=== PATIENT | male | born 1955 | race Caucasian/White ===

== ENCOUNTER 2018-03-21 10:46 | Inpatient (IN) ==
[2018-03-21] MEDS ORDERED: SALINE FLUSH 10ml SYRINGE IVF PRN (11:13)
[2018-03-21] MEDS ORDERED: NS 1,000 ML IV ONE (11:13)
--- OUTSIDE RECORDS SUMMARY | 2018-03-21 11:16 | External Medical Summary ---
:1955 Author Organization e[employer] Care Team Providers Name Role Phone Gloria Isidro Provider Role Unavailable Allergies No Known Allergies Problems No Known Problems Medications No Known Medications Results No Known Results Summary Purpose [employer] Submission
[2018-03-21] MEDS ORDERED: ONDANSETRON 4 MG/2 ML INJECTION IVP ONE (11:30)
[2018-03-21] MEDS ORDERED: CEFAZOLIN 1 G INJECTION IVP ONE ×2 (11:30→14:00)
[2018-03-21] MEDS ORDERED: MORPHINE SULFATE 4mg INJECTION IVP ONE ×2 (11:30→13:42)
--- NOTE | 2018-03-21 12:02 | Emergency Department Report ---
Head Injury HPI - General Chief complaint: Trauma Stated complaint: arm laceration, fall, head laceration Time Seen by Provider: 03/21/18 11:10 - History of Present Illness HPI Narrative: 62-year-old male presents with laceration to left wrist and forehead. He was notified as stated his having to go to [facility] for [facility], he became frustrated and slashed at the back of his hand with a knife blade. He cut through deeply enough that he has been unable to flex his fingers since that time. He states he only had one drink of vodka when that happened. He "lost a lot of blood" - Related Data Home Medications Medication Instructions Recorded Confirmed Multivit-Min/FA/Lycopen/Lutein 1 tab PO DAILY #0 09/01/15 03/21/18 [Centrum Silver Tablet] Allopurinol [Zyloprim] 300 mg PO DAILY 12/11/17 03/21/18 Lisinopril [Prinivil] 40 mg PO DAILY 12/11/17 03/21/18 Oxycodone *IR* [Roxicodone *Ir*] 5 mg PO QID PRN 01/21/18 03/21/18 Aspirin [Aspirin EC] 81 mg PO DAILY 03/21/18 03/21/18 Escitalopram [Lexapro] 10 mg PO DAILY 03/21/18 03/21/18 Ibuprofen 600 mg PO Q6H PRN 03/21/18 03/21/18 LORazepam [Ativan] 0.5 mg PO TID PRN 03/21/18 03/21/18 Allergies/Adverse reactions: Allergies Allergy/AdvReac Type Severity Reaction Status Date / Time No Known Drug Allergies Allergy Unknown Verified 03/21/18 11:02 [facility] Patient Stated Medical History Hypertension Yes Sleep Apnea No Gastroesophageal Reflux Yes: well controlled Disease Other GI Yes: GOUT, DIVERTICULITIS Anesthesia Reactions No Surgical History: colon resection - Social History Smoking status: Never smoker Substance use type: does not use Alcohol intake frequency: former alcohol drinker Course Vital Signs Temperature 98.9 F 03/21/18 10:48 Pulse Rate 97 03/21/18 10:48 Respiratory Rate 16 03/21/18 10:48 Blood Pressure 115/70 03/21/18 10:48 Pulse Oximetry 98 03/21/18 10:48 Temperature 98.9 F 03/21/18 10:48 Pulse Rate 97 03/21/18 10:48 Respiratory Rate 16 03/21/18 10:48 Blood Pressure 115/70 03/21/18 10:48 Pulse Oximetry 98 03/21/18 10:48 Head Injury - Lab Data Result diagrams: 03/21/18 11:15 03/21/18 11:15 Lab Results 03/21/18 03/21/18 Range/Units 11:15 11:15 WBC 22.6 H (4.5-11.0) T/MM3 RBC 3.87 L (4.50-5.90) M/MM3 Hgb 11.1 L (13.5-17.5) GM/DL Hct 33.6 L (41-53) % MCV 86.8 (80-100) UM3 MCH 28.7 (26-34) UUG MCHC 33.0 (31-37) GM/DL RDW Std Deviation 42.7 (36.9-50.2) FL Plt Count 329 (130-400) T/MM3 MPV 9.4 (9.4-12.4) UM3 Immature Gran % (Auto) Not performed Neut % (Auto) Not performed Lymph % (Auto) Not performed [place] % (Auto) Not performed Eos % (Auto) Not performed Baso % (Auto) Not performed Neut # (Auto) Not performed Lymph # (Auto) Not performed [place] # (Auto) Not performed Eos # (Auto) Not performed Baso # (Auto) Not performed Abs Immat Gran (auto) Not performed Neutrophils % (Manual) 88.0 H (33-66) % Lymphocytes % (Manual) 6.0 L (23-45) % Monocytes % (Manual) 6.0 (0-9.0) % Neutrophils # (Manual) 19.9 H (1.8-7.7) T/MM3 Lymphocytes # (Manual) 1.4 (1-4.8) T/MM3 Monocytes # (Manual) 1.4 H (0-0.8) T/MM3 RBC Morph Comment Normal Turbidity < 20 (0-20) Sodium 138 (134-144) MEQ/L Potassium 5.5 H (3.6-5) MEQ/L Chloride 101 (98-107) MEQ/L Carbon Dioxide 17 L (22-30) MEQ/L Anion Gap 20 H (5-15) meq/L BUN 26.0 H (9-20) MG/DL Creatinine 2.1 H (0.8-1.5) mg/dL GFR Calculation 32 BUN/Creatinine Ratio 12 (6-26) RATIO Glucose 144 H (75-110) MG/DL Calculated Osmolality 274 (261-280) MOSM/KG Calcium 8.5 (8.4-10.2) MG/DL Total Bilirubin 0.90 (0.20-1.30) MG/DL Conjugated Bilirubin 0.00 (0.00-0.30) mg/dL Unconjugated Bilirubin 0.50 (0.00-1.1) mg/dL Icterus Index < 2 (0-7) AST 81 H (17-59) U/L ALT 36 (1-50) U/L Alkaline Phosphatase 48 (38-126) U/L Total Protein 7.2 (6.3-8.2) g/dL Albumin 4.3 (3.5-5.0) g/dL Globulin 2.9 (2.4-3.6) G/DL Albumin/Globulin Ratio 1.5 (1.1-2.2) RATIO Specimen Hemolysis 92 H (0-25) Disposition Prescriptions: No Action Multivit-Min/FA/Lycopen/Lutein [Centrum Silver Tablet] 1 tab PO DAILY #0 Lisinopril [Prinivil] 40 mg PO DAILY Allopurinol [Zyloprim] 300 mg PO DAILY Escitalopram [Lexapro] 10 mg PO DAILY Aspirin [Aspirin EC] 81 mg PO DAILY Ibuprofen 600 mg PO Q6H PRN PRN Reason: Pain Oxycodone *IR* [Roxicodone *Ir*] 5 mg PO QID PRN PRN Reason: Pain LORazepam [Ativan] 0.5 mg PO TID PRN PRN Reason: Anxiety Referrals: Jacobo Luna II, MD [Primary Care Provider] -
--- OUTSIDE RECORDS SUMMARY | 2018-03-21 13:46 | External Medical Summary ---
:1955 Author Organization eClinicalWorks Care Team Providers Name Role Phone Gloria Isidro Provider Role Unavailable Allergies, Adverse Reactions, Alerts Substance Reaction Event Type N.K.D.A. Info Not Available Non Drug Allergy Problems Problem Type Condition Code Onset Dates Condition Status Assessment Encounter for follow-up examination Z09 Active after completed treatment for conditions other than malignant neoplasm Assessment Essential (primary) hypertension I10 Active Assessment Generalized abdominal pain R10.84 Active Medications Medication Code System Code Instructions Start End Date Status Dosage Date Lisinopril [facility] 07876-42 40 MG Orally 1 tablet 70-01 Once a day Stool Softener NDC 94451-32 100 MG Orally 1 capsule 86-72 Once a day as needed [place] [facility] 42443-11 5-325 MG Orally Sep 19Sep 24, 1 tablet as 13-01 every 6 hrs 2014 2014 needed Procedures Procedure Coding System Code Date OFFICE VISIT, EST-MOD. COMPLEXITY (25 MIN) CPT-4 73790 Sep 19, 2015 Vital Signs Date/Time: Sep 19, 2015 Height 68 in Weight 180.4 lbs Temperature 98.0 F Blood Pressure Diastolic 78 mm Hg Blood Pressure Systolic 130 mm Hg Cardiac Monitoring Heart Rate 84 /min BMI 27.43 Index Respiratory Rate 16 /min Results No Known Results Summary Purpose [employer] Submission
[2018-03-21] MEDS: NS 1,000 ML IV SCH ×5 (13:53→18:44)
[2018-03-21] MEDS ORDERED: LIDOCAINE 1% (10mg/ml) 30ml SDV INJ ONE (13:54)
[2018-03-21] MEDS ORDERED: BUPIVACAINE 0.25% (2.5mg/ml) PF 30ml INJECTION ONE (13:54)
--- NOTE | 2018-03-21 13:56 | Orthopedic History & Physical ---
Orthopedic HPI - HPI Comments Mr. Duncan is a 62-year-old gentleman who accidentally cut the dorsum of his left wrist with a fish fillet knife today. He said he was losing a lot of blood and passed out and hit his head. He packed the left wrist wound with flower. He then presented to emergency room. He is unable to extend his index middle and ring finger and he has numbness to the dorsum of his hand. [facility] Patient Stated Medical History Hypertension Yes Sleep Apnea No Gastroesophageal Reflux Yes: well controlled Disease Other GI Yes: GOUT, DIVERTICULITIS Anesthesia Reactions No Surgical History: colon resection - Social History Smoking status: Never smoker Substance use type: does not use Alcohol intake frequency: former alcohol drinker Review of Systems - Constitutional Constitutional: Absent: chills, fever(s), night sweats - Cardiovascular Cardiovascular: Absent: chest pain, palpitations - Respiratory Respiratory: Absent: cough, dyspnea - Gastrointestinal Gastrointestinal: Absent: abdominal pain, nausea, vomiting - Musculoskeletal Musculoskeletal: Present: as per HPI - Integumentary/Breasts Integumentary: Absent: lesions, rash - Neurological Neurological: Present: numbness, tingling Medications Home Medications Medication Instructions Recorded Confirmed Type Multivit-Min/FA/Lycopen/Lutein 1 tab PO DAILY #0 09/01/15 03/21/18 History [Centrum Silver Tablet] Allopurinol [Zyloprim] 300 mg PO DAILY 12/11/17 03/21/18 History Lisinopril [Prinivil] 40 mg PO DAILY 12/11/17 03/21/18 History Oxycodone *IR* [Roxicodone *Ir*] 5 mg PO QID PRN 01/21/18 03/21/18 History Aspirin [Aspirin EC] 81 mg PO DAILY 03/21/18 03/21/18 History Escitalopram [Lexapro] 10 mg PO DAILY 03/21/18 03/21/18 History Ibuprofen 600 mg PO Q6H PRN 03/21/18 03/21/18 History LORazepam [Ativan] 0.5 mg PO TID PRN 03/21/18 03/21/18 History Allergies Allergy/AdvReac Type Severity Reaction Status Date / Time No Known Drug Allergies Allergy Unknown Verified 03/21/18 11:02 Exam - Constitutional Vital Signs: Temperature 98.9 F 03/21/18 10:48 Pulse Rate 94 03/21/18 13:40 Respiratory Rate 18 03/21/18 13:40 Blood Pressure 104/50 03/21/18 13:40 Pulse Oximetry 99 03/21/18 13:40 General: cooperative, well developed, disheveled Nutritional Appearance: well nourished Orientation: alert - Gait Assistive Device: none - Psych Mood: normal Affect: normal Attitude: cooperative - RUE General: normal to inspection, no obvious deformity, other (partial amputation to the index finger) Skin: no rashes or lesions noted Shoulder Range of Motion: within normal limits Elbow Range of Motion: within normal limits Wrist Range of Motion: within normal limits Neurological: normal to light touch, strength 5/5 throughout - LUE Shoulder Range of Motion: within normal limits Elbow Range of Motion: within normal limits Left Upper Extremity Comments: He is unable to actively extend the index middle and ring finger. He was decreased sensation to the dorsum of his hand. The wrist itself is wrapped with 4 x 4's and Coban. He can make a fist. - RLE Hip: negative straight leg raise - Wound Right Frontal Type of Wound/Ulcer: Other (traumatic laceration to bone) Wound Drainage Description: Sanguineous Wound Drainage Odor: No Odor Wound Size: > than 1 squre cm - Labs Result Diagrams: 03/21/18 11:15 03/21/18 11:15 Abnormal lab results 03/21/18 03/21/18 Range/Units 11:15 11:15 WBC 22.6 H (4.5-11.0) T/MM3 RBC 3.87 L (4.50-5.90) M/MM3 Hgb 11.1 L (13.5-17.5) GM/DL Hct 33.6 L (41-53) % Neutrophils % (Manual) 88.0 H (33-66) % Lymphocytes % (Manual) 6.0 L (23-45) % Neutrophils # (Manual) 19.9 H (1.8-7.7) T/MM3 Monocytes # (Manual) 1.4 H (0-0.8) T/MM3 Potassium 5.5 H (3.6-5) MEQ/L Carbon Dioxide 17 L (22-30) MEQ/L Anion Gap 20 H (5-15) meq/L BUN 26.0 H (9-20) MG/DL Creatinine 2.1 H (0.8-1.5) mg/dL Glucose 144 H (75-110) MG/DL AST 81 H (17-59) U/L Specimen Hemolysis 92 H (0-25) H & H 03/21/18 Range/Units 11:15 Hgb 11.1 L (13.5-17.5) GM/DL Hct 33.6 L (41-53) % Orthopedic Assessment and Plan (1) Extensor tendon laceration of left wrist with open wound Status: Acute Qualifiers: Encounter type: initial encounter Qualified Code(s): S66.922A - Laceration of unspecified muscle, fascia and tendon at wrist and hand level, left hand, initial encounter; S61.502A - Unspecified open wound of left wrist, initial encounter Assessment and Plan: Given the fact that he placed a [place] into the wound and he cannot extend his fingers I recommended a surgical exploration with irrigation and debridement and repair of tendon lacerations as needed. I would like to keep him overnight on IV antibiotics to watch the wound post operatively. We'll also repair his laceration while he is in the operating room. (2) Laceration of head Status: Acute Hospital Course Summary Disclaimer: The visit summary below is not to be considered part of the above Progress Note.
[2018-03-21] MEDS ORDERED: PROPOFOL 20 ML ONE (14:07)
[2018-03-21] MEDS ORDERED: SEVOFLURANE 250ml LIQUID IH ONE (14:07)
[2018-03-21] MEDS ORDERED: ROCURONIUM 50 MG/5 ML INJECTION IVP ONE ×2 (14:07→15:24)
--- NOTE | 2018-03-21 14:11 | Anesthesia Preoperative Report ---
Anesthesia Preoperative Record - Date and Time Date: 03/21/18 Preoperative Diagnosis: arm laceration, fall, head laceration Proposed Procedure: repair face and arm laceration NPO Since Date: 03/21/18 NPO Since Time: 10:00 Allergies/Adverse Reactions: Allergies Allergy/AdvReac Type Severity Reaction Status Date / Time No Known Drug Allergies Allergy Unknown Verified 03/21/18 11:02 - Vital Signs Vital Signs: Temperature 98.9 F 03/21/18 10:48 Pulse Rate 93 03/21/18 14:08 Respiratory Rate 19 03/21/18 14:08 Blood Pressure 88/50 03/21/18 14:08 Pulse Oximetry 99 03/21/18 14:08 Height and Weight: Height 1.73 m Weight 91 kg - Medications Inpatient Medications: Current Medications Sodium Chloride (Normal Saline) 1,000 mls @ 500 mls/hr IV .Q2H VIKI Last Admin: 03/21/18 13:53 Dose: 500 mls/hr Cefazolin Sodium 2 g/ Sodium (Chloride) 100 mls @ 200 mls/hr IV O ONE Stop: 03/21/18 14:44 Lorazepam (Ativan Inj) 0.5 mg IVP O PRN Sodium Chloride (Iv Flush) 10 - 80 ml IVF PRN PRN PRN Reason: Flushing Last Admin: 03/21/18 11:34 Dose: 10 ml Home Medications: Home Medications Medication Instructions Recorded Confirmed Type Multivit-Min/FA/Lycopen/Lutein 1 tab PO DAILY #0 09/01/15 03/21/18 History [Centrum Silver Tablet] Allopurinol [Zyloprim] 300 mg PO DAILY 12/11/17 03/21/18 History Lisinopril [Prinivil] 40 mg PO DAILY 12/11/17 03/21/18 History Oxycodone *IR* [Roxicodone *Ir*] 5 mg PO QID PRN 01/21/18 03/21/18 History Aspirin [Aspirin EC] 81 mg PO DAILY 03/21/18 03/21/18 History Escitalopram [Lexapro] 10 mg PO DAILY 03/21/18 03/21/18 History Ibuprofen 600 mg PO Q6H PRN 03/21/18 03/21/18 History LORazepam [Ativan] 0.5 mg PO TID PRN 03/21/18 03/21/18 History Is Patient on Beta Landon?: No - Medical History Respiratory: DENIES: Sleep Apnea Cardiovascular: Reports: Hypertension Gastrointestional: Reports: Gastroesophageal Reflux Disease (well controlled), Other (GOUT, DIVERTICULITIS) Neuro/Musculoskeletal: Reports: Depression Renal/Endocrine: Reports: Other (Hepatitis C) Other History: DENIES: Anesthesia Reactions - Surgical History GI Surgery/Treatments: Reports: Colon Resection (2016) Musculoskeletal Surgery/Tx: Comment Only: Other (R INDEX FINGER AMPUTATION) Hx Family Anesthesia Reaction: No - Social History Smoking Status: Never smoker Hx Chewing Tobacco Use: No Second Hand Exposure: No Substance Use Type: does not use Alcohol Intake: current Alcohol Intake Frequency: 0-2 drinks per day - Pertinent Findings Laboratory: CBC and BMP 03/21/18 11:15 03/21/18 11:15 BMP 03/21/18 11:15 Sodium 138 Potassium 5.5 H Chloride 101 Carbon Dioxide 17 L BUN 26.0 H Creatinine 2.1 H Glucose 144 H Calcium 8.5 Liver Function 03/21/18 Range/Units 11:15 Total Bilirubin 0.90 (0.20-1.30) MG/DL AST 81 H (17-59) U/L ALT 36 (1-50) U/L Alkaline Phosphatase 48 (38-126) U/L Albumin 4.3 (3.5-5.0) g/dL EKG: Sinus Rhythm - Physical Exam Respiratory Exam: Present: lungs clear Cardiovascular Exam: Present: regular rate and rhythm, no murmur - Airway Assessment Mallampati Score: I TMD: 3 Fingerbreadths Neck Extension: good Teeth: chipped teeth/crowns Overall Assessment: no airway concerns - ASA ASA Score: 2, E - Plan Anesthesia: General Inhalation Gases - Discussion Discussion: Discussed risks/options/alternatives of anesthesia and questions answered. Patient consents. Nursing pain assessment noted. Attestation Statement: Prior to the delivery of any anesthetic medication, I examined the patient, developed the plan, obtained the patient's consent and discussed the risk and benefits of the procedure with the patient/guardian. - Additional Information Seen by Anesthesia: Yes
--- NOTE | 2018-03-21 14:12 | History & Physical Report ---
History of Present Illness Date: 03/21/18 Chief complaint: left wrist injury HPI: Mr. Harmon is a 62 y/o male who was sharpening a fish filet knife at 0200 on (he states that he often stays up late doing house projects). After he sharpened it, it accidentally slipped out of his hand causing a deep cut on left wrist. He reports it bled profusely, and he actually passed out from the blood loss. He fell forward, causing a right forehead laceration. He now has a headache. He thinks his nose might be broken too. At some point, he stuffed the wound with flour. He tried to make it up the steps, but ended up falling again, this time injuring his right lower ribs. It's painful to breathe but he denies abdominal pain. He still feels weak, dizzy, and lightheaded. He admits to drinking a bloody frandy at 1999 on 03/20/18 but denies further alcohol intake. His wanted to call 911 but he refused. He did present to [facility], however, and he was found to be anemic with a hgb of 11.1 (in December it was 15-16). WBC was 22.6. He also was hyperkalemic (5.5) and had an HEATHER with creatinine of 2.6. He was given a total of 1.5L of NS for hypotension and renal support. He was given Ancef; tetanus was updated in November. CT scans of his head, cervical spine, and maxillofacial were read as negative. Wrist x-ray did not show fracture but demonstrated foreign material anterior to the carpal bones. Both Dr. Curtis and Dr. Jang were contacted, and given his HEATHER, hemodynamic instability, combined with ABLA contributing to syncope, and contaminated wound with likely tendon involvement requiring immediate surgery, he was admitted to inpatient status. Review of Systems All systems PM: 10-point ROS was reviewed, no additional remarkable complaints except - Constitutional Constitutional: Present: headache(s), weakness - EENMT Eyes: Present: blurry vision Nose: Present: allergies Mouth/Throat: Absent: sore throat, changes in swallowing - Cardiovascular Cardiovascular: Present: chest pain, syncope Vascular: Absent: pedal edema - Respiratory Respiratory: Present: cough (mild). Absent: dyspnea - Gastrointestinal Gastrointestinal: Absent: abdominal pain, constipation, diarrhea, nausea, vomiting - Genitourinary Genitourinary: Absent: dysuria, hematuria - Musculoskeletal Musculoskeletal: Present: back pain, neck pain, other (left wrist pain) - Integumentary/Breasts Integumentary: Present: as per HPI, wounds - Neurological Neurological: Present: as per HPI, dizziness, headache(s), weakness. Absent: abnormal speech, confusion, focal weakness, numbness, paresthesias - Psychiatric Psychiatric: Present: anxiety, depression - Endocrine Endocrine: Present: palpitations (occasionally) - Hematologic/Lymphatic Hematologic/Lymphatic: Absent: easy bleeding - Allergic/Immunologic Allergic/Immunologic: Present: seasonal rhinorrhea Past Medical History Medical History Updates: HTN. Gout. Chronic neck and back pain. GERD. BPH. history of pericarditis. arthritis. anxiety. Hepatitis C. B/L carpal tunnel syndrome. allergic rhinitis Surgical History: exploratory laparotomy with excision of mass contiguous with bladder, sigmoid resection with primary anastomosis (2014) Dr. Sher. Right index finger distal amputation Dr. Curtis Family History Updates: Mother - HTN and DM. Both mother and father had heart disease. Family History: As Above - Social History Smoking status: Never smoker Substance use type: does not use Alcohol intake frequency: other (moderate intake) Last drink: hours (ago) (1999 on 03/20/18) Housing: house Household members: spouse Current occupational status: employed Current occupation: [employer] Does patient use chewing tobacco?: No Social history: PCP: Dr. Luna Medications Home Medications Medication Instructions Recorded Confirmed Type Multivit-Min/FA/Lycopen/Lutein 1 tab PO DAILY #0 09/01/15 03/21/18 History [Centrum Silver Tablet] Allopurinol [Zyloprim] 300 mg PO DAILY 12/11/17 03/21/18 History Lisinopril [Prinivil] 40 mg PO DAILY 12/11/17 03/21/18 History Oxycodone *IR* [Roxicodone *Ir*] 5 mg PO QID PRN 01/21/18 03/21/18 History Aspirin [Aspirin EC] 81 mg PO DAILY 03/21/18 03/21/18 History Escitalopram [Lexapro] 10 mg PO DAILY 03/21/18 03/21/18 History Ibuprofen 600 mg PO Q6H PRN 03/21/18 03/21/18 History LORazepam [Ativan] 0.5 mg PO TID PRN 03/21/18 03/21/18 History Allergies Allergy/AdvReac Type Severity Reaction Status Date / Time No Known Drug Allergies Allergy Unknown Verified 03/21/18 11:02 Exam Vital Signs: Temperature 98.9 F 03/21/18 10:48 Pulse Rate 93 03/21/18 14:08 Respiratory Rate 19 03/21/18 14:08 Blood Pressure 88/50 03/21/18 14:08 Pulse Oximetry 99 03/21/18 14:08 Telemetry Rhythm: Sinus Rhythm Height/Weight/BMI: Height 1.73 m Weight 91 kg - Constitutional Present: no acute distress, well nourished, well developed, obese - Routine HEENT Exam Head: Present: normocephalic Eye: Present: PERRL. Absent: conjunctival icterus, scleral injection ENT: Present: mucous membranes moist, oropharynx clear. Absent: dentition normal (missing teeth) - Detailed Head Exam Head image: 1 - Gaping laceration 2 - contusion 3 - abrasions 4 - head feels numb - Routine Neck Exam Present: supple - Routine Chest/Breast/Axilla Exam Chest wall: Present: tenderness (right lower ribs) - Routine Respiratory Exam Present: CTA bilaterally - Routine Cardiovascular Exam Present: RRR, S1, S2 - Routine Abdominal Exam Present: soft, normoactive bowel sounds, non distended, non tender. Absent: rebound, guarding, organomegaly - Routine Extremities Exam Present: no edema (BLE) Comments: left wrist is wrapped tightly causing swelling of left hand. He is only able to extend his 5th finger and is also able to move his thumb. He cannot extend his 2nd, 3rd, and 4th fingers. He has loss of sensation to these fingertips as well. He has a distal amputation of his right index finger large contusion to left forearm - Routine Skin Exam Present: dry, warm, wounds - Routine Neurological Exam Present: alert, oriented X3, CN II-XII intact, moving all extremities, vision grossly intact, hearing grossly intact, normal speech - Routine Psychiatric Exam Present: normal affect, normal thought process, cooperative Results - Labs CBC & Chem 7: 03/21/18 11:15 03/21/18 11:15 - Imaging and Cardiology CT scan - head Status: image reviewed by me Additional comments: CT scans of c-spine, head, and maxillofacial were negative for acute findings. Left wrist Status: image reviewed by me Additional comments: no fracture seen ; foreign material anterior to carpals Assessment and Plan (1) Acute renal failure Current visit: Yes Status: Acute (2) Hypotension arterial Current visit: Yes Status: Acute (3) Extensor tendon laceration of left wrist with open wound Current visit: Yes Status: Acute Assessment and Plan: Assessment ARF (Cr 2.1) - baseline 0.7 Hypotension (MAP 60) Syncope ABLA (11.1) Hyperkalemia (5.5) Left wrist laceration with extensor tendon injury Scalp laceration Leukocytosis (22.6) Probable concussion hx HTN Gout Chronic neck and back pain GERD BPH history of pericarditis arthritis anxiety Hepatitis C B/L carpal tunnel syndrome allergic rhinitis Plan Admit, inpatient status under the hospitalist service. PCP: Dr. Luna. ABLA, hypotension, syncope -type and screen -IVF: NS at 150 mL/hr HEATHER, hypotension -IVF as above -check urine sodium and creatinine -hold lisinopril, ibuprofen wrist laceration -debridement/closure planned today per Dr. Curtis -Ancef -follow WBC - leukocytosis could be stress response -hold ASA for now acute on chronic pain -home oxycodone - may take 1-2 QID PRN -morphine PRN Orders discussed with Dr. Jang. DVT Prophylaxis: SCD's Resuscitation Status: Full Code - Physician Narrative Physician: Lola Jang MD Narrative: Date: 03/21/18 Time: 1709 I have independently evaluated and examined this patient. I reviewed the chart, the patient's history, and the PATIENT ACCOUNT SPECIALIST/PA's documented findings as above. We discussed and formulated the assessment and plan as above with additions as below: Mr. Harmon was seen in the emergency room prior to surgery. He sustained a accidental laceration to his left dorsal wrist at 2 AM followed by significant blood loss and syncope resulting in large head laceration and probable second episode of syncope and chest injury. Patient has persistent hypotension in the emergency room in conjunction with 4 to 5 point drop in hemoglobin from baseline in December and significant increase in creatinine from that time suggesting ATN. There is evidence of tendon laceration of the left second third and fourth extensor tendons as he is unable to extend any of those digits although he can weakly flex all digits of the left hand. He additionally has impaired sensation to light touch for those 3 fingers. The patient is cooperative in the emergency room but describes lightheadedness, rib pain, and headache. Patient moves all extremities grossly symmetrically, edema of the left hand is present but the patient is able to weakly flex all digits of the left hand, no extension of the second third and fourth digits left hand as noted above. Respirations nonlabored but diminished airflow anteriorly; regular cardiac rhythm. 5-6 cm irregular gaping laceration above/lateral to the right eyebrow. Maxillofacial/head CT/C-spine CT all reviewed by myself and negative for acute pathology other than facial laceration described above; incidentally old lacunar infarcts were identified in the basal ganglia bilaterally. Hypotension/hemodynamic instability-continue fluids Acute renal failure-probable ATN due to hypotension/acute blood loss Acute blood loss anemia, anticipate hemoglobin to drop further as equilibration occurs and with rehydration. Hemoglobin to be recheck postoperatively Wounds/tendon injuries (contaminated wound)-surgical repair per Dr. Curtis, discussed with him postoperatively. No gross contamination of the wound intraoperatively but delayed arrival and high risk wound with exposed tendons will require continued antibiotics. OT eval in time. Rib pain present on arrival-chest x-ray to be obtained to look for evidence of rib fracture. Initial glucose modestly elevated-likely stress reaction; AST also elevated with normal ALT-likely EtOH related/Hep C. Discussed with Dr. Arvizu prior to hospitalization. Hospital Course Summary Disclaimer: The visit summary below is not to be considered part of the above Progress Note. Hospital Course: 03/21/18 - Admit, inpatient status under the hospitalist service. PCP: Dr. Luna. ABLA, hypotension, syncope -type and screen -IVF: NS at 150 mL/hr HEATHER, hypotension -IVF as above -check urine sodium and creatinine -hold lisinopril, ibuprofen wrist laceration -debridement/closure planned today per Dr. Curtis -Ancef -follow WBC - leukocytosis could be stress response -hold ASA for now acute on chronic pain -home oxycodone - may take 1-2 QID PRN -morphine PRN
[2018-03-21] MEDS ORDERED: CEFAZOLIN 2 G in NS 100 ML IV ONE (14:15)
[2018-03-21] MEDS ORDERED: FentaNYL 250 MCG/5 ML INJECTION ONE (14:25)
[2018-03-21] MEDS ORDERED: CEFAZOLIN 1 G INJECTION ONE (14:43)
[2018-03-21] MEDS ORDERED: SALINE FLUSH 10ml SYRINGE ONE (14:51)
[2018-03-21] MEDS ORDERED: PHENYLEPHRINE INJ 10 MG/ML VIAL IV ONE (14:51)
[2018-03-21] MEDS ORDERED: BUPIV 0.25% 30ml/LIDO 1% 30ml MIXTURE ID ONE (15:12)
[2018-03-21] MEDS ORDERED: Oxycodone *IR* 5 MG TABLET PO PRN (15:24)
[2018-03-21] MEDS ORDERED: LORazepam 0.5 MG TABLET PO PRN (15:24)
[2018-03-21] MEDS ORDERED: SENNA + DOCUSATE TABLET PO PRN (15:26)
[2018-03-21] MEDS ORDERED: MORPHINE SULFATE 4mg INJECTION IVP PRN (15:26)
[2018-03-21] MEDS ORDERED: ACETAMINOPHEN 325 MG TABLET PO PRN (15:26)
[2018-03-21] MEDS ORDERED: ONDANSETRON 4 MG/2 ML INJECTION IVP PRN (15:26)
[2018-03-21] MEDS ORDERED: EPHEDRINE 50mg/ml INJECTION ONE (16:11)
[2018-03-21] MEDS ORDERED: SUGAMMADEX 200mg/2ml INJECTION IVP ONE (16:44)
[2018-03-21] MEDS ORDERED: NEOMYCIN/POLYMYXIN/BACITRACIN OINT PACKET TP ONE (16:51)
[2018-03-21] MEDS ORDERED: MORPHINE SULFATE 10 MG/ML VIAL IVP PRN (17:16)
--- NOTE | 2018-03-21 17:34 | Anesthesia Postoperative Note ---
- Date and Time Date: 03/21/18 Time: 17:34 - Status Patient Participated in Evaluation: Patient Participated in Person Vital Signs: Temperature 97.6 F 03/21/18 16:58 Pulse Rate 87 03/21/18 17:30 Respiratory Rate 12 03/21/18 17:30 Blood Pressure 92/55 03/21/18 17:30 Pulse Oximetry 100 03/21/18 17:30 Respiratory Function: Airway Patent Cardiovascular Function: Regular Pulse EKG: Sinus Rhythm Mental Status: Alert and Oriented Hydration: Taking PO Fluids Complications During Recover: None Apparent - Follow-Up Instructions Instructions: Per Surgeon
[2018-03-21] MEDS: ARTIFICIAL TEARS 15ml EACH EYE PRN (19:46)
[2018-03-21] MEDS: Oxycodone *IR* 5 MG TABLET PO PRN (22:41)
[2018-03-22] MEDS: NS 1,000 ML IV SCH ×7 (00:05→18:52)
[2018-03-22] MEDS: CEFAZOLIN 2 G in NS 100 ML IV SCH ×3 (01:27→16:47)
[2018-03-22] MEDS: Oxycodone *IR* 5 MG TABLET PO PRN ×5 (04:22→23:48)
--- NOTE | 2018-03-22 07:41 | Orthopedic Progress Note ---
Date: Date: 03/22/18 Time: 737 Subjective/Severity of Illness: Postop day 1 left wrist laceration expiration with repair of extensor tendons. Mr. Duncan is alert and oriented this morning he states that his pain is well- controlled oral pain medication. He has no specific questions or new concerns or complaints today. Exam - Constitutional Vital Signs: Temperature 97.8 F 03/22/18 04:00 Pulse Rate 81 03/22/18 04:00 Respiratory Rate 20 03/22/18 04:00 Blood Pressure 106/64 03/22/18 04:00 Pulse Oximetry 98 03/22/18 04:00 General: cooperative, well developed, disheveled Nutritional Appearance: well nourished Orientation: alert - Cast/Brace Cast/Brace Type: other (volar slab splints to left forearm and wrist) Condition: in good condition without signs of skin ulceration, shows normal signs of wear, exposed digits with good ROM and capillary refill - Wound Right Frontal Type of Wound/Ulcer: Other (traumatic laceration to bone) - Labs Result Diagrams: 03/22/18 04:19 03/22/18 04:19 Abnormal lab results 03/21/18 03/21/18 03/22/18 Range/Units 18:29 20:03 04:19 RBC 3.01 L (4.50-5.90) M/MM3 Hgb 9.8 L D 8.6 L D (13.5-17.5) GM/DL Hct 29.4 L D 26.7 L (41-53) % Neut % (Auto) 66.6 H (33-66) % Lymph % (Auto) 22.4 L (23-45) % [place] % (Auto) 9.9 H (0-9.0) % [place] # (Auto) 1.1 H (0-0.8) T/MM3 BUN (9-20) MG/DL Glucose (75-110) MG/DL Calcium (8.4-10.2) MG/DL Ur Specific [place] >=1.030 H (1.015-1.025) Urine Protein 2+ A (NEGATIVE) Urine RBC 3-5 H (0-3) /HPF Urine Bacteria 1+ H (NEGATIVE) 03/22/18 Range/Units 04:19 RBC (4.50-5.90) M/MM3 Hgb (13.5-17.5) GM/DL Hct (41-53) % Neut % (Auto) (33-66) % Lymph % (Auto) (23-45) % [place] % (Auto) (0-9.0) % [place] # (Auto) (0-0.8) T/MM3 BUN 27.0 H (9-20) MG/DL Glucose 123 H (75-110) MG/DL Calcium 7.9 L (8.4-10.2) MG/DL Ur Specific [place] (1.015-1.025) Urine Protein (NEGATIVE) Urine RBC (0-3) /HPF Urine Bacteria (NEGATIVE) H & H 03/21/18 03/22/18 Range/Units 18:29 04:19 Hgb 9.8 L D 8.6 L D (13.5-17.5) GM/DL Hct 29.4 L D 26.7 L (41-53) % Orthopedic Assessment and Plan (1) Extensor tendon laceration of left wrist with open wound Status: Acute Qualifiers: Encounter type: initial encounter Qualified Code(s): S66.922A - Laceration of unspecified muscle, fascia and tendon at wrist and hand level, left hand, initial encounter; S61.502A - Unspecified open wound of left wrist, initial encounter Assessment and Plan: Mr. Herrera is doing well this morning. I explained to him that occurred in surgery yesterday and how important it is for him to keep the splint on and his wrist against current position. I also encouraged him to elevate his wrist at all times. We'll plan on keeping his wrist in the same position for 4 weeks before starting range of motion. Upon discharge and follow-up in my office in 1 week. (2) Laceration of head Status: Acute Hospital Course Summary Disclaimer: The visit summary below is not to be considered part of the above Progress Note. Hospital Course: 03/21/18 - Admit, inpatient status under the hospitalist service. PCP: Dr. Luna. ABLA, hypotension, syncope -type and screen -IVF: NS at 150 mL/hr HEATHER, hypotension -IVF as above -check urine sodium and creatinine -hold lisinopril, ibuprofen wrist laceration -debridement/closure planned today per Dr. Curtis -Ancef -follow WBC - leukocytosis could be stress response -hold ASA for now acute on chronic pain -home oxycodone - may take 1-2 QID PRN -morphine PRN
--- NOTE | 2018-03-22 08:52 | XRay Report ---
Indication: laceration dorsal PROCEDURE: XR wrist LT 3-4 views: Encounter: Initial Comparison: None Findings: There is no acute fracture, dislocation or malalignment identified. Old healed second and third metacarpal fractures. Bandaging material causing artifact. Impression: No acute osseous abnormality. .
--- NOTE | 2018-03-22 08:53 | CT Scan Report ---
Indication: fall PROCEDURE: CT head/brain wo con: Encounter: Initial Comparison: June 23, 2016 Technique: Axial CT images through the head were performed without contrast. Iterative Reconstruction dose reducing technique was utilized. FINDINGS: Moderate atrophy. Old lacunar infarcts. Prominent retrocerebellar CSF space. The ventricles are of normal size, shape, and configuration for the patient's age. There is no evidence of acute intracranial hemorrhage, midline displacement, or mass effect. There are scattered areas of low attenuation in the white matter which most likely represent changes of chronic microvascular ischemia. The CT attenuation of the brain parenchyma is otherwise normal within the cerebellum, brain stem, and cerebral hemispheres. The tympanic cavities and mastoid air cells are free of appreciable disease. There are no definite fractures of the skull base, calvarium, or visualized portion of the midface. IMPRESSION: No CT evidence of acute traumatic intracranial injury. .
[2018-03-22] MEDS: POLYETHYL GLYCOL 3350 17gm PACKET PO SCH (08:54)
[2018-03-22] MEDS: ESCITALOPRAM 10 MG TABLET PO SCH (08:54)
--- NOTE | 2018-03-22 08:55 | CT Scan Report ---
Indication: fall PROCEDURE: CT cervical spine wo con: Encounter: Initial Comparison: June 23, 2016 Technique: Axial CT images through the cervical spine were performed without contrast. Coronal and sagittal reformatted images were also obtained. Automated Exposure Control and Iterative Reconstruction dose reducing techniques were utilized. FINDINGS: The alignment of the cervical spine is stable. Multilevel degenerative changes are present. There is no evidence of acute fracture or subluxation of the cervical spine. The atlantoaxial articulation, dens, and upper cervical spine demonstrate no subluxation. The paraspinal soft tissues and spinal canal appear unremarkable. IMPRESSION: No acute traumatic abnormality of the cervical spine. There is a preliminary report by [facility]. .
--- NOTE | 2018-03-22 08:56 | CT Scan Report ---
Indication: fall PROCEDURE: CT maxillofacial wo contrast: Encounter: Initial Comparison: None Technique: Axial noncontrast CT images through the mid face were performed with coronal and sagittal two-dimensional reformats. Automated Exposure Control and Iterative Reconstruction dose reducing techniques were utilized. Findings: No acute maxillofacial fracture identified. Dental and periodontal disease. Paranasal sinuses are clear. Visualized mastoid air cells are clear. The globes are intact. Lenses are located. No intraconal hematoma. Right scalp laceration. Numerous calcifications in the scalp diffusely. Impression: No acute maxillofacial fracture. There is a preliminary report by [facility]. .
--- NOTE | 2018-03-22 09:59 | XRay Report ---
Indication: chest wall pain/fall PROCEDURE: XR chest 1V: Encounter: Initial Comparison: January 16, 2017 Findings: Lungs are stable and grossly clear. No pleural effusion or pneumothorax. Cardiomediastinal contours and pulmonary vascularity are stable. Impression: Stable chest without acute cardiopulmonary disease. .
--- NOTE | 2018-03-22 10:04 | Progress Note ---
- Date 03/22/18 Subjective: Mr. Harmon is seen today in follow up. He is on the phone with a family member. Reports to me that his pain is not well controlled. Reports he has not had anything for pain since 0300 this morning. He has not requested pain medication from his nurse yet, so I have encouraged him to do so. (I have also updated nursing staff). His only c/o to me is really the pain. Nursing notes reviewed- pt. has been resistant to help with getting up. I see that he reported to Dr. Curtis at 0730 that he was not having much pain. D/W Dr. Jang this morning as well. Objective Vital signs: Temperature 97.2 F 03/22/18 07:50 Pulse Rate 78 03/22/18 08:16 Respiratory Rate 18 03/22/18 07:50 Blood Pressure 93/58 03/22/18 08:16 Pulse Oximetry 97 03/22/18 07:50 Height/Weight/BMI: Weight 100 kg - Constitutional Present: no acute distress, average body habitus, cooperative - Routine HEENT Exam Head: Present: normocephalic, laceration (Laceration with incision left forehead ), facial swelling. Absent: atraumatic Eye: Present: PERRL ENT: Present: mucous membranes moist - Routine Respiratory Exam Present: decreased breath sounds, CTA bilaterally. Absent: rales, rhonchi, crackles - Routine Cardiovascular Exam Present: RRR, S1, S2, no murmur - Routine Abdominal Exam Present: soft, normoactive bowel sounds, non distended, non tender - Routine Extremities Exam Present: edema, normal capillary refill, tenderness, joint swelling. Absent: no edema, non tender, full ROM, pallor, extremity cold to touch Comments: Left arm with splint in place. Fingers warm, swollen. Good cap refill. - Routine Musculoskeletal Exam Musculoskeletal: Present: moving extremities well, limited range of motion - Routine Skin Exam Present: dry, warm, wounds - Routine Neurological Exam Present: alert, oriented X3, moving all extremities - Routine Psychiatric Exam Present: cooperative Results - Labs CBC & Chem 7: 03/22/18 10:34 03/22/18 04:19 - Imaging and Cardiology Chest x-ray Status: image reviewed by me, pending Additional comments: Bilateral atelectasis noted. Assessment and Plan (1) Extensor tendon laceration of left wrist with open wound Current visit: Yes Status: Acute (2) Hypotension arterial Current visit: Yes Status: Acute (3) Acute renal failure Current visit: Yes Status: Acute Assessment and Plan: Assessment Acute traumatic injury due to large left wrist laceration ARF (Cr 2.1) - baseline 0.7 Hypotension (MAP 60) Syncope ABLA (11.1) Hyperkalemia (5.5), Resolved Left wrist laceration with extensor tendon injury Scalp laceration Leukocytosis (22.6), Resolved Probable concussion hx HTN Gout Chronic neck and back pain GERD BPH history of pericarditis arthritis anxiety Hepatitis C B/L carpal tunnel syndrome allergic rhinitis Plan 03/22/18 Slow improvement. H/H continues to trend down, and patient remains fairly hypotensive He is up almost 10kg overnoc, so fluid overload will be a concern. He had obvious large volume blood loss with syncope due to laceration. Repeat H&H now- consider transfusion vs. Albumin. Will need to back off IVF. Cannot diurese given ongoing hypotension. If persists, may need to consider echo due to hx of pericarditis. HEATHER is resolving. Assess CPK- risk of Rhabdo given falls and traumatic injury. Leukocytosis resolving- continue Ceftriaxone due to intentional FB induction with flour by pt. prior to arrival. s/p surgical repair and irrigation, but remains high risk for infection. Continue PRN home oxycodone for pain. PRN ativan for anxiety. DC IV ativan due to high risk for sedation. Will add I.S. due to concern for atelectasis. Monitor pulmonary status. Hold lisinopril due to hypotension. Continue fall precautions. Monitor for ETOH withdrawal given routine ETOH use. Chart reviewed during this visit. DVT Prophylaxis: SCD's Resuscitation Status: Full Code - Physician Narrative Physician: Lola Jang MD Narrative: Date: 03/22/18 Time: 1145 I have independently evaluated and examined this patient. I reviewed the chart, the patient's history, and the SCOREBOARD OPERATOR/PA's documented findings as above. We discussed and formulated the assessment and plan as above with additions as below: Mr. Harmon denies lightheadedness despite persistent hypotension, he has been up in the room independently. He describes pleuritic pain on the right and a sensation of something popping in the lower right ribs with deep breath. Today he reports falling and hitting his head at least 3 times but is not having headache at time of my evaluation. His hands feel numb bilaterally but he is able to flex and extend all digits today and reports sensation is present despite describe numbness. NAD, alert, no erythema surrounding facial laceration Mild edema in the hands bilaterally L>R, able to extend and flex digits of the left hand, sensation intact to light touch of all fingers on the left hand Hemoglobin has dropped progressively from 16.5 on 01/21/18-11.1 yesterday-8.3 at 10:30 today. Chest x-ray reviewed by myself-lungs clear-no obvious rib fractures. Large volume blood loss, symptomatic. Reassess hemoglobin midafternoon-with ongoing hypotension may require transfusion to improve oncotic pressure. Creatinine has improved with volume replacement, urine output acceptable. Contaminated wounds-patient confirms that he tried to pack the wounds with flour to stop bleeding. Continue IV antibiotics. Letter written for the court regarding patient's hospitalization/patient's employee benefits attorney notified. Hospital Course Summary Disclaimer: The visit summary below is not to be considered part of the above Progress Note. Hospital Course: 03/21/18 - Admit, inpatient status under the hospitalist service. PCP: Dr. Luna. ABLA, hypotension, syncope -type and screen -IVF: NS at 150 mL/hr HEATHER, hypotension -IVF as above -check urine sodium and creatinine -hold lisinopril, ibuprofen wrist laceration -debridement/closure planned today per Dr. Curtis -Ancef -follow WBC - leukocytosis could be stress response -hold ASA for now acute on chronic pain -home oxycodone - may take 1-2 QID PRN -morphine PRN 03/22/18 Slow improvement. H/H continues to trend down, and patient remains fairly hypotensive He is up almost 10kg overnoc, so fluid overload will be a concern. He had obvious large volume blood loss with syncope due to laceration. Repeat H&H now- consider transfusion vs. Albumin. Will need to back off IVF. Cannot diurese given ongoing hypotension. If persists, may need to consider echo due to hx of pericarditis. HEATHER is resolving. Assess CPK- risk of Rhabdo given falls and traumatic injury. Leukocytosis resolving- continue Ceftriaxone due to intentional FB induction with flour by pt. prior to arrival. s/p surgical repair and irrigation, but remains high risk for infection. Continue PRN home oxycodone for pain. PRN ativan for anxiety. DC IV ativan due to high risk for sedation. Will add I.S. due to concern for atelectasis. Monitor pulmonary status. Hold lisinopril due to hypotension. Continue fall precautions. Monitor for ETOH withdrawal given routine ETOH use. Chart reviewed during this visit. Addendum entered and electronically signed by Patria Tamayo APRN 03/22/18 10:16 : Hyperglycemia, AM. May be stress response, but will check A1c in AM and start BG monitoring.
[2018-03-22] MEDS: ALLOPURINOL 300 MG TABLET PO SCH (13:35)
[2018-03-22] MEDS: ARTIFICIAL TEARS 15ml EACH EYE PRN (16:49)
[2018-03-23] MEDS: NS 1,000 ML IV SCH ×4 (00:44→11:19)
[2018-03-23] MEDS: CEFAZOLIN 2 G in NS 100 ML IV SCH ×3 (01:17→17:02)
[2018-03-23] MEDS: Oxycodone *IR* 5 MG TABLET PO PRN ×4 (06:12→20:14)
[2018-03-23] MEDS: POLYETHYL GLYCOL 3350 17gm PACKET PO SCH (08:01)
[2018-03-23] MEDS: ALLOPURINOL 300 MG TABLET PO SCH (08:04)
[2018-03-23] MEDS: ESCITALOPRAM 10 MG TABLET PO SCH (08:04)
--- NOTE | 2018-03-23 08:28 | Orthopedic Progress Note ---
Date: Date: 03/23/18 Time: 824 Subjective/Severity of Illness: Mr. Harmon is lying in bed this morning when I visit. He states he has been having a lot of pain, uncontrolled by medication. The sling is loose on his left arm and is laying at patient's side. He reports before surgery he had numbness with digits 2-4, that has now resolved. He has been slowly working at ROM of his fingers. Denies any CP, SOA, nausea. Orthopedic Exam Vital signs: Temperature 98.3 F 03/23/18 07:36 Pulse Rate 85 03/23/18 07:41 Respiratory Rate 16 03/23/18 07:36 Blood Pressure 117/67 03/23/18 07:41 Pulse Oximetry 97 03/23/18 07:41 - Constitutional General Appearance: Present: alert, orientated x3, cooperative - Respiratory Exam Present: non-labored - Cardiovascular Exam Present: pedal pulses intact - Extremities Exam Present: edema (left hand with significant swelling), normal capillary refill ( left hand), tenderness. Absent: no edema, non tender, full ROM, pallor, extremity cold to touch Comments: Left jordin wrap taken down, splint padding cut on bilateral sides so no longer circumferential around wrist. Splint left in place, Jordin wrap reapplied looser. Skin moist and macerated between each finger. Right forehead laceration edges approximated, no drainage. - Neurological Exam Present: intact to light touch, no deficits - Labs Result Diagrams: 03/23/18 04:17 03/23/18 04:18 Abnormal lab results 03/22/18 03/22/18 03/22/18 Range/Units 10:34 10:34 17:04 RBC (4.50-5.90) M/MM3 Hgb 8.3 L 8.1 L (13.5-17.5) GM/DL Hct 25.6 L 25.2 L (41-53) % Neut % (Auto) (33-66) % Lymph % (Auto) (23-45) % [place] % (Auto) (0-9.0) % [place] # (Auto) (0-0.8) T/MM3 Calcium (8.4-10.2) MG/DL Total Creatine Kinase 570 H (55-170) U/L Total Protein (6.3-8.2) g/dL Albumin (3.5-5.0) g/dL 03/23/18 03/23/18 Range/Units 04:17 04:18 RBC 3.00 L (4.50-5.90) M/MM3 Hgb 8.5 L (13.5-17.5) GM/DL Hct 26.7 L (41-53) % Neut % (Auto) 70.1 H (33-66) % Lymph % (Auto) 18.3 L (23-45) % [place] % (Auto) 10.1 H (0-9.0) % [place] # (Auto) 1.0 H (0-0.8) T/MM3 Calcium 8.1 L (8.4-10.2) MG/DL Total Creatine Kinase (55-170) U/L Total Protein 5.7 L (6.3-8.2) g/dL Albumin 3.3 L (3.5-5.0) g/dL H & H 03/21/18 03/22/18 03/22/18 Range/Units 18:29 04:19 10:34 Hgb 9.8 L D 8.6 L D 8.3 L (13.5-17.5) GM/DL Hct 29.4 L D 26.7 L 25.6 L (41-53) % 03/22/18 03/23/18 Range/Units 17:04 04:17 Hgb 8.1 L 8.5 L (13.5-17.5) GM/DL Hct 25.2 L 26.7 L (41-53) % Orthopedic Assessment and Plan (1) Extensor tendon laceration of left wrist with open wound Status: Acute Qualifiers: Encounter type: initial encounter Qualified Code(s): S66.922A - Laceration of unspecified muscle, fascia and tendon at wrist and hand level, left hand, initial encounter; S61.502A - Unspecified open wound of left wrist, initial encounter Assessment and Plan: Throughout exam patient denies any pain to palpation. Instructed patient to keep left arm elevated, ice (nursing updated). Will place gauze between fingers due to moisture, prevent skin break down. We'll plan on keeping his wrist in the same position with splint for 4 weeks before starting range of motion. Upon discharge and follow-up in my office in 1 week. When I revisit patient later in the day, left hand edema improved along with pain after elevation and ice. Continues to have rib pain but states left arm has improved. (2) Laceration of head Status: Acute Assessment and Plan: Will remove sutures 7 days post op Hospital Course Summary Disclaimer: The visit summary below is not to be considered part of the above Progress Note. Hospital Course: 03/21/18 - Admit, inpatient status under the hospitalist service. PCP: Dr. Luna. ABLA, hypotension, syncope -type and screen -IVF: NS at 150 mL/hr HEATHER, hypotension -IVF as above -check urine sodium and creatinine -hold lisinopril, ibuprofen wrist laceration -debridement/closure planned today per Dr. Curtis -Ancef -follow WBC - leukocytosis could be stress response -hold ASA for now acute on chronic pain -home oxycodone - may take 1-2 QID PRN -morphine PRN 03/22/18 Slow improvement. H/H continues to trend down, and patient remains fairly hypotensive He is up almost 10kg overnoc, so fluid overload will be a concern. He had obvious large volume blood loss with syncope due to laceration. Repeat H&H now- consider transfusion vs. Albumin. Will need to back off IVF. Cannot diurese given ongoing hypotension. If persists, may need to consider echo due to hx of pericarditis. HEATHER is resolving. Assess CPK- risk of Rhabdo given falls and traumatic injury. Leukocytosis resolving- continue Ceftriaxone due to intentional FB induction with flour by pt. prior to arrival. s/p surgical repair and irrigation, but remains high risk for infection. Continue PRN home oxycodone for pain. PRN ativan for anxiety. DC IV ativan due to high risk for sedation. Will add I.S. due to concern for atelectasis. Monitor pulmonary status. Hold lisinopril due to hypotension. Continue fall precautions. Monitor for ETOH withdrawal given routine ETOH use. Chart reviewed during this visit.
--- NOTE | 2018-03-23 08:38 | Operative Note ---
DATE OF PROCEDURE 03/21/2018 PREOPERATIVE DIAGNOSES 1. Left wrist dorsal laceration with extensor tendon laceration. 2. Right head traumatic laceration. POSTOPERATIVE DIAGNOSES 1. Left wrist dorsal laceration with extensor tendon laceration. 2. Right head traumatic laceration. PROCEDURE 1. Exploration of left wrist laceration with irrigation, debridement and repair of three extensor tendons and closure of laceration. 2. Closure of head laceration. SURGEON Cornel Curtis MD ANESTHESIA General. COMPLICATIONS None. EBL AND FLUIDS Please see Anesthetic Record. DESCRIPTION OF PROCEDURE Mr. Harmon and his left wrist were identified and marked in the preoperative holding area. He was brought back to the operating suite and placed supine on the operating table. He was placed under general anesthesia. The left upper extremity was prepped and draped in my normal sterile fashion. Time-out was performed. Antibiotics were given. I began with the head laceration. The wound was thoroughly cleaned with Betadine swabs. It had been irrigated out with normal saline using a 20 cc syringe. The skin edges were cleaned and no obvious contamination of the wound. I then repaired the laceration using a simple interrupted suture using 3 -0 nylon. Skin edges reapproximated nicely. I then moved to the wrist. The wrist laceration measured 6.5 cm. I did have to extend it ulnarly by about half a centimeter. There was some active bleeding of some superficial veins which were cauterized. There were a few black specks but otherwise no gross contamination noted. I began by thoroughly irrigating the wound using 6 liters of normal saline using cysto tubing. I followed this with a half a liter of Aricept solution. I then began exploration, first proximally. There were no obvious tendon lacerations noted within the wound. The joint capsule itself was intact without any signs of damage. The extensor retinaculum was intact and the laceration was just distal to the extensor retinaculum at the wrist. I did have to split the extensor retinaculum about 2 cm proximally and with this I was able to find the proximal ends of the tendons. It appeared that all tendons within the fourth compartment were lacerated. All four extensor digitorum communis tendons were identified as well as the extensor indices. I then found the tendon edges distally. Again, all were able to be found and were tagged with Allis clamps. I began ulnarly incising up tendons and repaired each tendon using 3-0 Prolene using two-core suture technique with the wrist extended about 40 degrees. The sutures were tied together. After all five tendon edges were repaired back end-to-end, I then did an epitendinous circumferential running 5-0 Prolene suture around the repair site of each tendon. The wrist was taken through a range of motion to ensure that there was no gapping at the repair site, which there was not. Irrigation again was performed with normal saline. The extensor retinaculum was then repaired with 2-0 Vicryl. The skin laceration was repaired with 3-0 nylon in a running baseball fashion. Sterile dressings were then placed. The wrist was kept at 40 degrees of extension and the MCP joints were kept at 20 degrees of flexion while a volar slab splint was placed. This was allowed to harden before the patient was allowed to awaken from general anesthesia. He was placed into a sling and then taken to the recovery room under the care of Anesthesia. He tolerated the procedure well. There were no complications. LACEY
--- NOTE | 2018-03-23 09:53 | Progress Note ---
- Date 03/23/18 Subjective: Tha is still feeling weak, dizzy and lightheaded. He has pain stemming from both his left wrist injury and right lower rib pain. The pain in his right lower ribs makes it difficult to take a deep breath comfortably and to move around. He has a headache and the top of his head still feels numb as it did the first day he came in. He states he has been eating well and denies any abdominal or GI complaints. His bowels have been moving. Objective Vital signs: Temperature 98.3 F 03/23/18 07:36 Pulse Rate 85 03/23/18 07:41 Respiratory Rate 16 03/23/18 07:36 Blood Pressure 117/67 03/23/18 07:41 Pulse Oximetry 97 03/23/18 07:41 Height/Weight/BMI: Weight 100.8 kg - Constitutional Present: no acute distress, well nourished, well developed - Routine HEENT Exam Head: Absent: atraumatic (sutured laceration above/lateral to the right eye with other small abrasions to face/forehead) Eye: Absent: conjunctival icterus, scleral injection - Routine Respiratory Exam Present: CTA bilaterally - Routine Cardiovascular Exam Present: RRR, S1, S2 - Routine Abdominal Exam Present: soft, normoactive bowel sounds, non distended, non tender - Routine Extremities Exam Present: no edema - Routine Skin Exam Present: dry, warm - Routine Neurological Exam Present: alert, oriented X3, normal speech - Routine Psychiatric Exam Present: normal affect, normal thought process, cooperative Results - Labs CBC & Chem 7: 03/23/18 04:17 03/23/18 04:18 Assessment and Plan (1) Extensor tendon laceration of left wrist with open wound Current visit: Yes Status: Acute (2) Hypotension arterial Current visit: Yes Status: Acute (3) Acute renal failure Current visit: Yes Status: Acute Assessment and Plan: Assessment Acute traumatic injury due to large left wrist laceration ARF (Cr 2.1) - baseline 0.7 - resolved Hypotension (MAP 60) - resolved Syncope ABLA (11.1) Hyperkalemia (5.5), Resolved Left wrist laceration with extensor tendon injury Scalp laceration Leukocytosis (22.6), Resolved Probable concussion hx HTN Gout Chronic neck and back pain GERD BPH history of pericarditis arthritis anxiety Hepatitis C B/L carpal tunnel syndrome allergic rhinitis Plan 03/23/18 Hgb improved to 8.5 though pt is still symptomatic. BP stabilized. Iron studies ordered. Reduce rate of IVF to 75 ml/hr. Continue cefazolin for contaminated wound. WBC normal at 10.3. Per ortho, keep in splint x4 weeks before ROM is started. Gauze was placed between his fingers today to prevent moisture and potential for skin breakdown. HEATHER and hyperkalemia have resolved. Forehead sutures to be removed [address]op. Discussed with Dr. Jang. DVT Prophylaxis: SCD's Resuscitation Status: Full Code - Physician Narrative Physician: Lola Jang MD Narrative: Date: 03/23/18 Time: 8248 I have independently evaluated and examined this patient. I reviewed the chart, the patient's history, and the STATEMENT CLERKS MANAGER/PA's documented findings as above. We discussed and formulated the assessment and plan as above with additions as below: Mr. Harmon complains of severe pain in his left hand, forehead, and anterior right ribs in addition to chronic pain in his neck and shoulders. He is still able to move the digits of the left hand and reports sensation is present in all fingers. He denies lightheadedness. Patient is alert, sclera anicteric; wound on the right forehead is without evidence of cellulitis and there is no drainage. Left arm is wrapped, there is persistent edema in the hand and the pulp of the fingertips is boggy/pale but sensation is present. Sensation intact distally all digits on the left hand. Laceration with some dried blood present right forearm, no surrounding erythema/ inflammation. Point tenderness over the upper right anterior ribs; decreased breath sounds bilaterally but clear. Hemoglobin 8.5, white count, creatinine, and electrolytes have normalized. OT consult--> recommend initiation of therapy in 4 weeks. Will discuss status of left arm wound with Dr. Curtis after he has a chance to examine the patient's arm to determine if further IV antibiotics are needed. Initiate oral iron therapy. Hospital Course Summary Disclaimer: The visit summary below is not to be considered part of the above Progress Note. Hospital Course: 03/21/18 - Admit, inpatient status under the hospitalist service. PCP: Dr. Luna. ABLA, hypotension, syncope -type and screen -IVF: NS at 150 mL/hr HEATHER, hypotension -IVF as above -check urine sodium and creatinine -hold lisinopril, ibuprofen wrist laceration -debridement/closure planned today [facility] - leukocytosis could be stress response -hold ASA for now acute on chronic pain -home oxycodone - may take 1-2 QID PRN -morphine PRN 03/22/18 Slow improvement. H/H continues to trend down, and patient remains fairly hypotensive He is up almost 10kg overnoc, so fluid overload will be a concern. He had obvious large volume blood loss with syncope due to laceration. Repeat H&H now- consider transfusion vs. Albumin. Will need to back off IVF. Cannot diurese given ongoing hypotension. If persists, may need to consider echo due to hx of pericarditis. HEATHER is resolving. Assess CPK- risk of Rhabdo given falls and traumatic injury. Leukocytosis resolving- continue Ceftriaxone due to intentional FB induction with flour by pt. prior to arrival. s/p surgical repair and irrigation, but remains high risk for infection. Continue PRN home oxycodone for pain. PRN ativan for anxiety. DC IV ativan due to high risk for sedation. Will add I.S. due to concern for atelectasis. Monitor pulmonary status. Hold lisinopril due to hypotension. Continue fall precautions. Monitor for ETOH withdrawal given routine ETOH use. Chart reviewed during this visit. 03/23/18 Hgb improved to 8.5 though pt is still symptomatic. BP stabilized. Iron studies ordered. Reduce rate of IVF to 75 ml/hr. Continue cefazolin for contaminated wound. WBC normal at 10.3. Per ortho, keep in splint x4 weeks before ROM is started. Gauze was placed between his fingers today to prevent moisture and potential for skin breakdown. HEATHER and hyperkalemia have resolved. Forehead sutures to be removed 7 days postop. OT consult--> recommend initiation of therapy in 4 weeks.
[2018-03-24] MEDS: Oxycodone *IR* 5 MG TABLET PO PRN ×4 (00:49→14:53)
[2018-03-24] MEDS: CEFAZOLIN 2 G in NS 100 ML IV SCH ×2 (00:50→11:08)
[2018-03-24 00:58] VITALS: RESP 16
[2018-03-24 07:40] VITALS: TEMP 97.5; O2SAT 98
[2018-03-24 07:58] VITALS: BP 115/72
[2018-03-24] MEDS ORDERED: FERROUS SULFATE 324 MG TABLET PO SCH (08:00)
--- NOTE | 2018-03-24 08:24 | Orthopedic Progress Note ---
Date: Date: 03/24/18 Time: 820 Subjective/Severity of Illness: Jose Juan is lying in bed this morning when I visit. States overall his pain continues to improve. States he is sore "all over". Continues to have numbness on right temporal region, unchanged from admission. Swelling and pain of left arm improved, has been elevating while resting and ice. Performing ROM of fingers. Denies nausea, CP, SOA. Orthopedic Exam Vital signs: Temperature 98.3 F 03/23/18 07:36 Pulse Rate 85 03/23/18 07:41 Respiratory Rate 16 03/23/18 07:36 Blood Pressure 117/67 03/23/18 07:41 Pulse Oximetry 97 03/23/18 07:41 - Constitutional General Appearance: Present: alert, orientated x3, cooperative - Respiratory Exam Present: non-labored - Cardiovascular Exam Present: pedal pulses intact - Extremities Exam Present: edema (left hand with minimal swelling, improved from yesterday's exam) , normal capillary refill (left hand). Absent: tenderness, pallor, extremity cold to touch - Integumentary Exam Present: pink, warm - Neurological Exam Present: intact to light touch, no deficits - Psychiatric Exam Present: alert, oriented, normal affect - Labs Result Diagrams: 03/24/18 04:22 03/24/18 04:22 Abnormal lab results 03/24/18 03/24/18 Range/Units 04:22 04:22 RBC 2.98 L (4.50-5.90) M/MM3 Hgb 8.4 L (13.5-17.5) GM/DL Hct 26.2 L (41-53) % Graham % (Auto) 11.3 H (0-9.0) % Creatinine 0.7 L (0.8-1.5) mg/dL H & H 03/21/18 03/22/18 03/22/18 Range/Units 18:29 04:19 10:34 Hgb 9.8 L D 8.6 L D 8.3 L (13.5-17.5) GM/DL Hct 29.4 L D 26.7 L 25.6 L (41-53) % 03/22/18 03/23/18 03/24/18 Range/Units 17:04 04:17 04:22 Hgb 8.1 L 8.5 L 8.4 L (13.5-17.5) GM/DL Hct 25.2 L 26.7 L 26.2 L (41-53) % Orthopedic Assessment and Plan (1) Extensor tendon laceration of left wrist with open wound Status: Acute Qualifiers: Encounter type: initial encounter Qualified Code(s): S66.922A - Laceration of unspecified muscle, fascia and tendon at wrist and hand level, left hand, initial encounter; S61.502A - Unspecified open wound of left wrist, initial encounter Assessment and Plan: Continue immobilization of left hand with splint, ROM of fingers. Sling for comfort, elevate and ice for edema. Maceration between fingers greatly improved today- gauze prn to prevent skin break down. We'll plan on keeping his wrist in the same position with splint for 4 weeks before starting range of motion. Follow-up in my office in 1 week. (2) Laceration of head Status: Acute Assessment and Plan: Will remove sutures 7 days post op Hospital Course Summary Disclaimer: The visit summary below is not to be considered part of the above Progress Note. Hospital Course: 03/21/18 - Admit, inpatient status under the hospitalist service. PCP: Dr. Luna. ABLA, hypotension, syncope -type and screen -IVF: NS at 150 mL/hr HEATHER, hypotension -IVF as above -check urine sodium and creatinine -hold lisinopril, ibuprofen wrist laceration -debridement/closure planned today per Dr. Curtis -Ancef -follow WBC - leukocytosis could be stress response -hold ASA for now acute on chronic pain -home oxycodone - may take 1-2 QID PRN -morphine PRN 03/22/18 Slow improvement. H/H continues to trend down, and patient remains fairly hypotensive He is up almost 10kg overnoc, so fluid overload will be a concern. He had obvious large volume blood loss with syncope due to laceration. Repeat H&H now- consider transfusion vs. Albumin. Will need to back off IVF. Cannot diurese given ongoing hypotension. If persists, may need to consider echo due to hx of pericarditis. HEATHER is resolving. Assess CPK- risk of Rhabdo given falls and traumatic injury. Leukocytosis resolving- continue Ceftriaxone due to intentional FB induction with flour by pt. prior to arrival. s/p surgical repair and irrigation, but remains high risk for infection. Continue PRN home oxycodone for pain. PRN ativan for anxiety. DC IV ativan due to high risk for sedation. Will add I.S. due to concern for atelectasis. Monitor pulmonary status. Hold lisinopril due to hypotension. Continue fall precautions. Monitor for ETOH withdrawal given routine ETOH use. Chart reviewed during this visit.
[2018-03-24 08:44] VITALS: PULSE 67
[2018-03-24] MEDS: ALLOPURINOL 300 MG TABLET PO SCH (09:20)
[2018-03-24] MEDS: POLYETHYL GLYCOL 3350 17gm PACKET PO SCH (09:20)
[2018-03-24] MEDS: ESCITALOPRAM 10 MG TABLET PO SCH (09:20)
--- NOTE | 2018-03-24 12:06 | Discharge Summary ---
Discharge Information Date of admission: 03/21/18 17:02 Attending Physician: Lola Jang MD Primary care physician: Jacobo Luna II, MD Consults: Dr. Curtis - Discharge Diagnosis (1) Extensor tendon laceration of left wrist with open wound Status: Acute (2) Hypotension arterial Status: Acute (3) Acute renal failure Status: Acute Acute traumatic L wrist laceration with extensor tendon laceration -s/p repair (Dr Curtis) ARF (Cr 2.1) - baseline 0.7 - resolved Hypotension (MAP 60) - resolved Syncope ABLA (11.1) Hyperkalemia (5.5), Resolved Scalp laceration Leukocytosis (22.6), Resolved Probable concussion hx HTN Gout Chronic neck and back pain GERD BPH history of pericarditis arthritis anxiety Hepatitis C B/L carpal tunnel syndrome allergic rhinitis - Procedures Procedures: PROCEDURE 03/21/18 1. Exploration of left wrist laceration with irrigation, debridement and repair of three extensor tendons and closure of laceration. 2. Closure of head laceration. SURGEON Cornel Curtis MD ANESTHESIA General. - Laboratory Labs: Hgb trend 03/21/18 03/22/18 03/24/18 11:15 04:19 04:22 Hgb 11.1 L 8.6 L D 8.4 L Dismissal labs 03/24/18 03/24/18 04:22 04:22 WBC 7.0 RBC 2.98 L Hgb 8.4 L Hct 26.2 L Plt Count 197 Sodium 136 Potassium 4.3 Chloride 99 Carbon Dioxide 30 BUN 11.0 Creatinine 0.7 L Calcium 8.8 D Admission labs 03/21/18 03/21/18 11:15 11:15 WBC 22.6 H RBC 3.87 L Hgb 11.1 L Hct 33.6 L Plt Count 329 Sodium 138 Potassium 5.5 H Chloride 101 Carbon Dioxide 17 L BUN 26.0 H Creatinine 2.1 H Glucose 144 H Calcium 8.5 Iron Studies 03/21/18 09:38 Iron 80 TIBC 471 % Saturation 17 A1C 03/23/18 04:18 Hemoglobin A1c 5.6 - Radiology Radiology: = = = = = = = = = = = = = = = = = = = = = = = = = = = = = = = = = = = = = = = = = = = = = = = = = = = = = = = = = = = Date of Exam: 03/21/18 Indication: fall PROCEDURE: CT cervical spine wo con: FINDINGS: The alignment of the cervical spine is stable. Multilevel degenerative changes are present. There is no evidence of acute fracture or subluxation of the cervical spine. The atlantoaxial articulation, dens, and upper cervical spine demonstrate no subluxation. The paraspinal soft tissues and spinal canal appear unremarkable. IMPRESSION: No acute traumatic abnormality of the cervical spine. = = = = = = = = = = = = = = = = = = = = = = = = = = = = = = = = = = = = = = = = = = = = = = = = = = = = = = = = = = = Date of Exam: 03/21/18 Indication: fall PROCEDURE: CT head/brain wo con: FINDINGS: Moderate atrophy. Old lacunar infarcts. Prominent retrocerebellar CSF space. The ventricles are of normal size, shape, and configuration for the patient's age. There is no evidence of acute intracranial hemorrhage, midline displacement, or mass effect. There are scattered areas of low attenuation in the white matter which most likely represent changes of chronic microvascular ischemia. The CT attenuation of the brain parenchyma is otherwise normal within the cerebellum, brain stem, and cerebral hemispheres. The tympanic cavities and mastoid air cells are free of appreciable disease. There are no definite fractures of the skull base, calvarium, or visualized portion of the midface. IMPRESSION: No CT evidence of acute traumatic intracranial injury. = = = = = = = = = = = = = = = = = = = = = = = = = = = = = = = = = = = = = = = = = = = = = = = = = = = = = = = = = = = Date of Exam: 03/21/18 Indication: fall PROCEDURE: CT maxillofacial wo contrast: Findings: No acute maxillofacial fracture identified. Dental and periodontal disease. Paranasal sinuses are clear. Visualized mastoid air cells are clear. The globes are intact. Lenses are located. No intraconal hematoma. Right scalp laceration. Numerous calcifications in the scalp diffusely. Impression: No acute maxillofacial fracture. = = = = = = = = = = = = = = = = = = = = = = = = = = = = = = = = = = = = = = = = = = = = = = = = = = = = = = = = = = = Date of Exam: 03/21/18 Indication: laceration dorsal PROCEDURE: XR wrist LT 3-4 views: Findings: There is no acute fracture, dislocation or malalignment identified. Old healed second and third metacarpal fractures. Bandaging material causing artifact. Impression: No acute osseous abnormality. History of Present Illness HPI: Mr. Harmon is a 62 y/o male who was sharpening a fish filet knife at 0200 on (he states that he often stays up late doing house projects). After he sharpened it, it accidentally slipped out of his hand causing a deep cut on left wrist. He reports it bled profusely, and he actually passed out from the blood loss. He fell forward, causing a right forehead laceration. He now has a headache. He thinks his nose might be broken too. At some point, he stuffed the wound with flour. He tried to make it up the steps, but ended up falling again, this time injuring his right lower ribs. It's painful to breathe but he denies abdominal pain. He still feels weak, dizzy, and lightheaded. He admits to drinking a bloody frandy at 1999 on 03/20/18 but denies further alcohol intake. His wanted to call 911 but he refused. He did present to [facility], however, and he was found to be anemic with a hgb of 11.1 (in December it was 15-16). WBC was 22.6. He also was hyperkalemic (5.5) and had an HEATHER with creatinine of 2.6. He was given a total of 1.5L of NS for hypotension and renal support. He was given Ancef; tetanus was updated in November. CT scans of his head, cervical spine, and maxillofacial were read as negative. Wrist x-ray did not show fracture but demonstrated foreign material anterior to the carpal bones. Both Dr. Curtis and Dr. Jang were contacted, and given his HEATHER, hemodynamic instability, combined with ABLA contributing to syncope, and contaminated wound with likely tendon involvement requiring immediate surgery, he was admitted to inpatient status. Objective Vital signs: Temperature 97.5 F 03/24/18 07:39 Pulse Rate 67 03/24/18 08:24 Respiratory Rate 16 03/24/18 07:39 Blood Pressure 115/72 03/24/18 07:58 Pulse Oximetry 98 03/24/18 07:39 Height/Weight/BMI: Weight 99 kg - Constitutional Present: no acute distress, well nourished, well developed - Routine HEENT Exam Head: Present: normocephalic, laceration (sutured lac to R forehead) - Routine Respiratory Exam Present: CTA bilaterally. Absent: wheezes - Routine Cardiovascular Exam Present: RRR, no murmur - Routine Abdominal Exam Present: soft, non distended, non tender - Routine Extremities Exam Present: no edema, normal capillary refill Comments: L forearm/wrist splinted - Routine Skin Exam Present: dry, warm - Routine Neurological Exam Present: alert, oriented X3 - Routine Lymphatic Exam Lymphatic: Absent: adenopathy - Routine Psychiatric Exam Present: normal affect, cooperative Hospital Course This is a general summary of the patient's hospital course. For more details refer to the complete medical record. Hospital course: 03/21/18 - Admit, inpatient status under the hospitalist service. PCP: Dr. Luna. ABLA, hypotension, syncope -type and screen -IVF: NS at 150 mL/hr HEATHER, hypotension -IVF as above -check urine sodium and creatinine -hold lisinopril, ibuprofen wrist laceration -debridement/closure planned today per Dr. Curtis -Ancef -follow WBC - leukocytosis could be stress response -hold ASA for now acute on chronic pain -home oxycodone - may take 1-2 QID PRN -morphine PRN 03/22/18 Slow improvement. H/H continues to trend down, and patient remains fairly hypotensive He is up almost 10kg overnoc, so fluid overload will be a concern. He had obvious large volume blood loss with syncope due to laceration. Repeat H&H now- consider transfusion vs. Albumin. Will need to back off IVF. Cannot diurese given ongoing hypotension. HEATHER is resolving. Assess CPK- risk of Rhabdo given falls and traumatic injury. Leukocytosis resolving- continue Ceftriaxone due to intentional FB induction with flour by pt. prior to arrival. s/p surgical repair and irrigation, but remains high risk for infection. Continue PRN home oxycodone for pain. PRN ativan for anxiety. DC IV ativan due to high risk for sedation. Will add I.S. due to concern for atelectasis. Monitor pulmonary status. Hold lisinopril due to hypotension. Continue fall precautions. Monitor for ETOH withdrawal given routine ETOH use. 03/23/18 Hgb improved to 8.5 though pt is still symptomatic. BP stabilized. Iron studies ordered. Continue cefazolin for contaminated wound. WBC normal at 10.3. Per ortho, keep in splint x4 weeks before ROM is started. Gauze was placed between his fingers today to prevent moisture and potential for skin breakdown. HEATHER and hyperkalemia have resolved. Forehead sutures to be removed 7 days postop. 03/24/18 BP's and labs are stable. Will need repeat CBC at f-u appt with Dr. Luna in [address] Curtis in 1 wk for removal of sutures and f-u. #60 oxycodone 5mg given to take up to 10mg QID PRN pain. No further RF's through hospital. This should last him until his f-u appt with PCP. Keep splint intact and keep it clean and dry. Use sling as needed for comfort. Perform ROM of fingers throughout the day. Complete course of Keflex for wound infection/prophylaxis. Time spent with patient: discharge greater than 30 minutes Resuscitation Status: Full Code Discharge Plan - Discharge Disposition Discharge Date: 03/24/18 Disposition: Discharged Home, Self-Care *Condition: Stable Reason For Visit (Visit label in EMR): fall,head & arm laceration,hypotension, ARF - Discharge Medications *Discharge Medications: New CephALEXin [Keflex 500 mg] 500 mg PO Q8HR #15 cap PEG 3350 17gm PACKET [Miralax] 17 gm PO DAILY packet Oxycodone *IR* [Roxicodone *Ir*] 5 - 10 mg PO Q4H PRN #60 tab PRN Reason: Pain Continue Multivit-Min/FA/Lycopen/Lutein [Centrum Silver Tablet] 1 tab PO DAILY #0 Lisinopril [Prinivil] 40 mg PO DAILY Allopurinol [Zyloprim] 300 mg PO DAILY Escitalopram [Lexapro] 10 mg PO DAILY Aspirin [Aspirin EC] 81 mg PO DAILY Ibuprofen 600 mg PO Q6H PRN PRN Reason: Pain Oxycodone *IR* [Roxicodone *Ir*] 5 mg PO QID PRN PRN Reason: Pain LORazepam [Ativan] 0.5 mg PO TID PRN PRN Reason: Anxiety - Discharge Packet/Instructions *Diet: regular diet *Activity: Use sling for comfort. *Wound Care: keep sutured area clean and dry. OK to shower, pat dry. Additional Instructions: Elevate arm and ice as needed for pain. Do not remove splint. Keep the splint, clean and dry. Perform range of motion with fingers several times a day. Sutures will be removed at your follow up appointment with Dr. Curtis. Take antibiotics until gone. *Expected Signs/Symptoms: Slow improvement in pain and healing. *Notify Physician if: You have worsening pain, fever, numbness or tingling to the fingers of the L hand. *During Business Hours Contact: Dr Luna or Dr Curtis *After Business Hours Contact: [facility] or report to ER. *Pending Lab/Results: No Pending Lab - Referrals/Follow Up *Referrals/Follow Up: Jaycee Brunner APRN [Advanced Practice Nurse] - 04/01/18 2:45 pm Jacobo Luna II, MD [Primary Care Provider] - 03/31/18 10:15 am - Patient Handouts Patient Handouts: Laceration (DC) - Dismissal Complete Discharge Instructions are:: Complete Physician Narrative - Narrative Physician: Lola Jang MD Attestation Narrative: Date: 03/24/18 Time: 2019 I have independently evaluated and examined this patient. I reviewed the chart, the patient's history, and the DIRECTOR OF INFORMATICS/PA's documented findings as above. We discussed and formulated the assessment and plan as above with additions as below: Tha was seen this morning and his estate attorney was updated on plans. Nursing reports the patient gets in and out of bed without difficulty and patient describes diffuse arthritis pain and pain in his right anterior ribs but decreased pain in the left hand and forehead. Left fingers are less swollen than they have been in the past couple of days, sensation remains intact in all digits of the left hand and is able to flex and extend the fingers partially-limited by splint/edema. Right forehead laceration without surrounding erythema or induration Respirations nonlabored Hemoglobin stable, WBC 7.0; afebrile and no orthostatic change in blood pressure. Stable for discharge. Patient is aware that he will need to contact his estate attorney so scheduled court appearance can be rearranged. Follow-up with Dr. Luna and Dr. Curtis as outlined. Plans discussed with patient 's .
== END 2018-03-24 15:12 | disposition home or self-care (01) | DRG 513 ==
LOC: ED 10:46 → SUR 13:31 → NMC.PERIOP 13:43 → SRG 13:44
PROVIDERS: ADMIT Internal Medicine; ATTEND Internal Medicine